=== PATIENT | female | born 1945 | race Caucasian/White ===

== ENCOUNTER 2020-12-29 12:04 | Emergency (ER) | payer MEDICARE ==
[~2020-12-29] VITALS: Ht 149.9 cm; Wt 66.4 kg
[~2020-12-29 12:04] MED LIST: ATE25T PO; LOVA20TA2 PO; RAMI5CAP65 PO
[2020-12-29] MEDS ORDERED: ketorolac tromethamine 15mg/ml inj. IM ONE (15:05)
[2020-12-29] MEDS ORDERED: LIDOcaine 5% patch TP STA (15:05)
[2020-12-29 15:39] VITALS: BP 168/75
== END 2020-12-29 15:49 | disposition home or self-care (01) ==
LOC: ER 12:05
DX: M54.5 Low back pain (principal); M25.562 Pain in left knee; E78.00 Pure hypercholesterolemia, unspecified; I10 Essential (primary) hypertension; G89.29 Other chronic pain; Z79.899 Other long term (current) drug therapy
CPT/HCPCS: 73560; 96372; 99284; J1885